=== PATIENT | male | born 1975 | race Hispanic/Latino ===

== ENCOUNTER 2019-12-23 20:16 | Emergency (ER) | payer OTHER ==
[~2019-12-23] VITALS: Ht 180.3 cm; Wt 133.8 kg
[2019-12-23 20:58] LABS: BASOPHILS % 0.4 % (0.0-1.0); EOSINOPHILS # (AUTO) 0.1 (0.0-0.4); EOSINOPHILS % 1.4 % (0.0-6.0); HEMATOCRIT 45.4 % (38.2-49.6); HEMOGLOBIN 15.9 g/dL (14.0-18.0); LYMPHOCYTES # (AUTO) 2.2 (1.0-3.2); LYMPHOCYTES % 23.4 % (18.0-39.1); MEAN CORPUSCULAR VOLUME 82.8 fL (81-99); MONOCYTES # (AUTO) 0.6 (0.2-0.8); MONOCYTES % 6.6 % (4.4-11.3); NEUTROPHILS # (AUTO) 6.4 (2.1-6.9); NEUTROPHILS % 67.8 % (38.7-80.0); PLATELET COUNT 254 x10e3/uL (140-360); RED BLOOD COUNT 5.48 x10e6/uL (4.3-5.7); RED CELL DISTRIBUTION WIDTH 12.8 % (11.7-14.4)
[2019-12-23 21:06] LABS: INR 0.88; PARTIAL THROMBOPLASTIN TIME 30.2 seconds (23.8-35.5); PROTHROMBIN TIME 12.4 seconds (11.9-14.5)
[2019-12-23 21:12] LABS: ALANINE AMINOTRANSFERASE 92 IU/L (0-55); ALBUMIN 3.8 g/dL (3.5-5.0); ALBUMIN/GLOBULIN RATIO 1.1 (0.8-2.0); ALKALINE PHOSPHATASE 110 IU/L (40-150); ANION GAP 10.9 mmol/L (8-16); BLOOD UREA NITROGEN 15 mg/dL (7-26); BUN/CREATININE RATIO 14 (6-25); CALCIUM 9.4 mg/dL (8.4-10.2); CARBON DIOXIDE 25 mmol/L (22-29); CHLORIDE 106 mmol/L (98-107); CREATININE, SERUM 1.11 mg/dL (0.72-1.25); EST GLOMERULAR FILTRATION RATE > 60 ML/MIN (60-); GLUCOSE 106 mg/dL (74-118); POTASSIUM 3.9 mmol/L (3.5-5.1); SODIUM 138 mmol/L (136-145)
[2019-12-28] MEDS ORDERED: LOSARTAN POTAS100 MG PO (15:40)
[2019-12-28] MEDS ORDERED: ISOSORBIDE MONO30 MG PO (15:40)
[2019-12-28] MEDS ORDERED: CARVEDILOL3.125 MG PO (15:40)
[2019-12-28] MEDS ORDERED: METFORMIN HCL500 MG PO (15:41)
[2019-12-28] MEDS ORDERED: SPIRONOLACTONE25 MG PO (15:41)
[2019-12-28] MEDS ORDERED: ASPIR 8181 MG PO (15:41)
[2019-12-28] MEDS ORDERED: LIPITOR10 MG PO (15:41)
[2019-12-28] MEDS ORDERED: VIT B12 PO (15:42)
[2019-12-28] MEDS ORDERED: L-THEANINE25 GM PO (15:42)
[2019-12-28] MEDS ORDERED: VIT D3 PO (15:42)
[2019-12-28] MEDS ORDERED: TOPIRAMATE100 MG PO (15:43)
== END 2019-12-23 21:30 | disposition home or self-care (01) ==
LOC: ER 20:16
DX: K62.5 Hemorrhage of anus and rectum (principal); R42 Dizziness and giddiness; I10 Essential (primary) hypertension; E11.9 Type 2 diabetes mellitus without complications; E78.5 Hyperlipidemia, unspecified; M54.9 Dorsalgia, unspecified; G89.29 Other chronic pain; M06.9 Rheumatoid arthritis, unspecified
CPT/HCPCS: 36415; 80053; 85025; 85610; 85730; 99283

== ENCOUNTER → 2019-12-30 | Outpatient (CLI) | payer OTHER ==
[~2019-12-30] MED LIST: ASPIR 8181 MG PO; CARVEDILOL3.125 MG PO; DIATRIZOATE MEGL/DIATRIZOA SOD 30 ML BTL PO ONE; IOPAMIDOL 370 MG/ML 200 ML INFUS..BTL INJ ONE; ISOSORBIDE MONO30 MG PO; L-THEANINE25 GM PO; LIPITOR10 MG PO; LOSARTAN POTAS100 MG PO; METFORMIN HCL500 MG PO; SODIUM CHLORIDE 0.9% 50ML 50 ML ONE; SPIRONOLACTONE25 MG PO; TOPIRAMATE100 MG PO; VIT B12 PO; VIT D3 PO
[2019-12-30 08:27] LABS: BLOOD UREA NITROGEN 15 mg/dL (7-26); BUN/CREATININE RATIO 16 (6-25); CREATININE, SERUM 0.92 mg/dL (0.72-1.25); EST GLOMERULAR FILTRATION RATE > 60 ML/MIN (60-)
--- NOTE | 2019-12-30 11:41 | Diagnostic Imaging Report ---
CT of the abdomen and pelvis. Comparison: None Clinical History: Abdominal pain, rectal bleeding for 2 days with left lower quadrant pain Technique: Helical CT scan of the abdomen and pelvis was performed. Intravenous contrast administration was utilized. Oral contrast administration was utilized. Coronal and sagittal reconstructions were generated from the raw data. This exam was performed according to our departmental dose-optimization program which includes automated exposure control, adjustment of the mA and/or kV according to patient size Discussion: Inferior chest: Unremarkable. Liver: Unremarkable Spleen: Unremarkable Pancreas: Unremarkable Biliary tree and gallbladder: Unremarkable Adrenal glands: Unremarkable Kidneys and ureters: Unremarkable. A small exophytic cortical cyst in the left kidney too small to characterize. Vasculature: Unremarkable Lymph nodes: Unremarkable Bowel: Unremarkable. Appendix is not clearly visualized. There is no inflammation in the region of the appendix. Pelvis: Urinary bladder is unremarkable. Prostate unremarkable. Seminal vesicles unremarkable. Pelvic wall unremarkable. Peritoneum: No free fluid or air. Perineal compartments: unremarkable. Fluid: As above Bones: Unremarkable Body wall: Unremarkable There is suspected right hydrocele. There is presence of a tiny metallic density anterior to the right common femoral artery. This could be the site of prior arterial access surgery. Impression: No significant abnormality on this CT of the abdomen and pelvis to account for the patient's rectal bleeding. A right hydrocele. The skin with further evaluated on scrotal ultrasound if needed. Signed by: Hilton Reardon MD on 12/30/2019 11:38 AM
== END ==
LOC: CT 07:48
PROVIDERS: ATTEND Internal Medicine Gastroenterology
DX: R10.32 Left lower quadrant pain (principal)
CPT/HCPCS: 36415; 74177; 82565; 84520; Q9967

== ENCOUNTER → 2019-12-31 | Day surgery (SDC) | payer OTHER ==
[2019-12-28 13:50] LABS: BASOPHILS % 0.4 % (0.0-1.0); EOSINOPHILS # (AUTO) 0.1 (0.0-0.4); EOSINOPHILS % 0.7 % (0.0-6.0); HEMATOCRIT 44.1 % (38.2-49.6); HEMOGLOBIN 14.8 g/dL (14.0-18.0); LYMPHOCYTES # (AUTO) 1.9 (1.0-3.2); LYMPHOCYTES % 22.4 % (18.0-39.1); MEAN CORPUSCULAR HEMOGLOBIN 28.2 pg (28-32); MEAN CORPUSCULAR HGB CONC 33.6 g/dL (31-35); MONOCYTES # (AUTO) 0.5 (0.2-0.8); MONOCYTES % 6.2 % (4.4-11.3); NEUTROPHILS % 69.8 % (38.7-80.0); PLATELET COUNT 200 x10e3/uL (140-360); RED BLOOD COUNT 5.25 x10e6/uL (4.3-5.7); RED CELL DISTRIBUTION WIDTH 12.8 % (11.7-14.4)
[~2019-12-31] MED LIST changes: -DIATRIZOATE MEGL/DIATRIZOA SOD 30 ML BTL PO ONE; +FENTANYL CITRATE/PF 100MCG/2 ML INJ ONE; +HYOSCYAMINE 0.125 MG TAB ONE; -IOPAMIDOL 370 MG/ML 200 ML INFUS..BTL INJ ONE; +LIDOCAINE HCL 2% LOCAL INJ 5 ML SDV VIAL INJ ONE; +MIDAZOLAM HCL 5 MG/ML VIAL ONE; +PROPOFOL IV EMULSION 10 MG/ML 20 ML VIAL ONE; -SODIUM CHLORIDE 0.9% 50ML 50 ML ONE
--- OUTSIDE RECORDS SUMMARY | 2019-12-31 05:59 | XMS REPORT ---
Author Author [facility] Organization [facility] Address Unknown Phone Unavailable Care Team Providers Care Animation Director Name Role Phone YVETTE TALAMANTES Unavailable Unavailable Problems This patient has no known problems. Allergies, Adverse Reactions, Alerts This patient has no known allergies or adverse reactions. Medications This patient has no known medications. Results Test Description Test Time Test Comments Text Results Atomic Results Result Comments CT ABDOMEN/PELVIS W 2019-12-30 11:34:00 [place] [address] Patient Name: CARLEY ROUSE MR #: [id number] : 1975 Age/Sex: 44/M Req #: [id number] Adm Physician: Ordered by: YVETTE TALAMANTES MD Report #: [id number] Location: CT Room/Bed: Procedure: [id number] CT/CT ABDOMEN/PELVIS W Exam Date: 12/30/19 Exam Time: 15 REPORT STATUS: Signed CT of the abdomen and pelvis. Comparison: None Clinical History: Abdominal pain, rectal bleeding for 2 days with left lower quadrant pain Technique: Helical CT scan of the abdomen and pelvis was performed. Intravenous contrast administration was utilized. Oral contrast administration was utilized. Coronal and sagittal reconstructions were generated from the raw data. This exam was performed according to our departmental dose-optimization program which includes automated exposure control, adjustment of the mA and/or kV according to patient size Discussion: Inferior chest: Unremarkable. Liver: Unremarkable Spleen: Unremarkable Pancreas: Unremarkable Biliary tree and gallbladder: Unremarkable Adrenal glands: Unremarkable Kidneys and ureters: Unremarkable. A small exophytic cortical cyst in the left kidney too small to characterize. Vasculature: Unremarkable Lymph nodes: Unremarkable Bowel: Unremarkable. Appendix is not clearly visualized. There is no inflammation in the region of the appendix. Pelvis: Urinary bladder is unremarkable. Prostate unremarkable. Seminal vesicles unremarkable. Pelvic wall unremarkable. Peritoneum: No free fluid or air. Perineal compartments: unremarkable. Fluid: As above Bones: Unremarkable Body wall: Unremarkable There is suspected right hydrocele. There is presence of a tiny metallic density anterior to the right common femoral artery. This could be the site of prior arterial access surgery. Impression: No significant abnormality on this CT of the abdomen and pelvis to account for the patient's rectal bleeding. A right hydrocele. The skin with further evaluated on scrotal ultrasound if needed. Signed by: Kemi Stapleton MD on 12/30/2019 11:38 AM Dictated By: KEMI STAPLETON MD [id number] Transcribed By: STEFANIE on 12/30/19 1138 COPY TO: YVETTE TALAMANTES MD
[2019-12-31 09:51] LABS: WBC,FECAL (FECAL LACTOFERRIN) NEGATIVE (NEGATIVE)
[2019-12-31 10:00] VITALS: BP 108/66
--- NOTE | 2019-12-31 12:04 | Operative Report ---
DATE OF PROCEDURE: 12/31/2019 SURGEON: Junior Tarango MD PROCEDURE: Colonoscopy with polypectomy. REFERRING PHYSICIAN: Dr. Yas Robertson. INDICATIONS FOR COLONOSCOPY: Rectal bleeding, diarrhea, father with colon cancer. MEDICATIONS: The patient was done under MAC, please see anesthesiologist's note. PROCEDURE IN DETAIL: With the patient in left lateral decubitus position, a flexible fiberoptic Olympus colonoscope was inserted into the rectum with ease and advanced all the way to the cecum. Prep overall was poor with [id number] amount of retained fecal material scattered in the colon. The cecal valve was intubated and the scope was advanced into the terminal ileum. Biopsies were obtained. The scope was then withdrawn back into the colon. The scope was then withdrawn back into the colon. It was then withdrawn slowly. Whatever was visualized, the mucosa overlying the ascending colon grossly appeared to be within normal limits. Three polyps were hot snared, one polyp was hot biopsied and site was hemoclipped from the transverse colon. Whatever was visualized, the mucosa overlying the descending sigmoid and rectum grossly appeared to be within normal limits. The scope was then retroflexed into the distal rectum and small internal hemorrhoids were noted, none of which was actively bleeding. The scope was then straightened out, it was subsequently withdrawn. The patient tolerated the procedure well. IMPRESSION: 1. Poor prep. 2. Transverse colon polyps x4, 1 hot biopsied, site hemoclipped and 3 hot snared. 3. Internal hemorrhoids, none actively bleeding. PLAN: Follow up histology. Initiate high-fiber, low-fat diet. Initiate high-fiber supplement. Anucort-HC suppositories b.i.d. x10 days and p.r.n. The patient will need a repeat colonoscopy after a better prep. Junior Tarango MD [facility] [place] /[id number] cc: Yas Robertson MD
[2019-12-31 14:59] LABS: C DIFFICILE TOXIN A&B AMP PROB NEGATIVE (NEGATIVE)
== END | disposition home or self-care (01) ==
LOC: OR 05:50
PROVIDERS: ATTEND Internal Medicine Gastroenterology
DX: K92.1 Melena (principal); D12.3 Benign neoplasm of transverse colon; K59.00 Constipation, unspecified; K64.8 Other hemorrhoids; E11.9 Type 2 diabetes mellitus without complications; I11.0 Hypertensive heart disease with heart failure; I50.9 Heart failure, unspecified; G47.33 Obstructive sleep apnea (adult) (pediatric); R07.9 Chest pain, unspecified; E78.5 Hyperlipidemia, unspecified; M06.9 Rheumatoid arthritis, unspecified; G62.9 Polyneuropathy, unspecified; R42 Dizziness and giddiness; Z01.810 Encounter for preprocedural cardiovascular examination; Z01.812 Encounter for preprocedural laboratory examination; Z11.59 Encounter for screening for other viral diseases; Z79.82 Long term (current) use of aspirin; Z79.84 Long term (current) use of oral hypoglycemic drugs; Z68.29 Body mass index [BMI] 29.0-29.9, adult; Z80.0 Family history of malignant neoplasm of digestive organs
CPT/HCPCS: 36415 ×2; 45380; 45384; 45385; 82948; 83630; 83993; 85025; 87045; 87177; 87328; 87493; 87635; 93005; J2001; J2250; J2704; J3010; 45378

== ENCOUNTER → 2020-01-21 | Outpatient (CLI) | payer SELFPAY ==
[~2020-01-21] MED LIST changes: +ASHWAGANDA PO; +CARVEDILOL12.5 MG PO; +ESTER C PO; -FENTANYL CITRATE/PF 100MCG/2 ML INJ ONE; -LIDOCAINE HCL 2% LOCAL INJ 5 ML SDV VIAL INJ ONE; -MIDAZOLAM HCL 5 MG/ML VIAL ONE; -PROPOFOL IV EMULSION 10 MG/ML 20 ML VIAL ONE; +TOPIRAMATE25 MG PO
== END ==
LOC: EDSEX → DX 13:40 → EDSTATUS 01-26 10:00 → MERGE 01-26 10:00
PROVIDERS: ATTEND Internal Medicine Gastroenterology
DX: Z01.818 Encounter for other preprocedural examination (principal); Z11.59 Encounter for screening for other viral diseases
CPT/HCPCS: 87635; 93005

== ENCOUNTER → 2020-01-26 | Day surgery (SDC) | payer OTHER ==
[2020-01-21 14:17] LABS: BASOPHILS % 0.4 % (0.0-1.0); EOSINOPHILS # (AUTO) 0.1 (0.0-0.4); EOSINOPHILS % 1.1 % (0.0-6.0); HEMATOCRIT 42.8 % (38.2-49.6); HEMOGLOBIN 14.4 g/dL (14.0-18.0); LYMPHOCYTES # (AUTO) 1.8 (1.0-3.2); LYMPHOCYTES % 23.2 % (18.0-39.1); MEAN CORPUSCULAR HGB CONC 33.6 g/dL (31-35); MEAN CORPUSCULAR VOLUME 83.1 fL (81-99); MONOCYTES # (AUTO) 0.6 (0.2-0.8); MONOCYTES % 7.2 % (4.4-11.3); NEUTROPHILS # (AUTO) 5.3 (2.1-6.9); NEUTROPHILS % 67.7 % (38.7-80.0); PLATELET COUNT 216 x10e3/uL (140-360); RED BLOOD COUNT 5.15 x10e6/uL (4.3-5.7); RED CELL DISTRIBUTION WIDTH 12.9 % (11.7-14.4)
[~2020-01-26] MED LIST changes: +GLUCAGON FOR INJ 1 MG VIAL ONE; -HYOSCYAMINE 0.125 MG TAB ONE; +LIDOCAINE HCL 2% LOCAL INJ 5 ML SDV VIAL INJ ONE; +PROPOFOL IV EMULSION 10 MG/ML 20 ML VIAL ONE
[2020-01-26 12:05] VITALS: BP 101/51
--- NOTE | 2020-01-26 14:55 | Operative Report ---
DATE OF PROCEDURE: 01/26/2020 SURGEON: Junior Tarango MD PROCEDURE: Colonoscopy with polypectomy note. INDICATIONS FOR COLONOSCOPY: Colorectal cancer screening, father with colon cancer, poor prep on last colonoscopy. MEDICATIONS: The patient was done under MAC, please see anesthesiologist's note. PROCEDURE IN DETAIL: With the patient in left lateral decubitus position, a flexible fiberoptic Olympus colonoscope was inserted into the rectum with ease and advanced all the way to the cecum. Mucosa overlying the cecum appeared to be within normal limits. One minute polyp was removed per cold biopsy forceps from the ascending colon. The transverse colon appeared to be within normal limits. Two polyps were removed per hot snare polypectomy from the descending colon. Sigmoid and rectum appeared to be within normal limits. The scope was then retroflexed into the distal rectum. Small internal hemorrhoids were noted, none of which was actively bleeding. The scope was then straightened out, it was subsequently withdrawn. The patient tolerated the procedure well. IMPRESSION: 1. Ascending colon polyp, minute, removed per cold biopsy forceps. 2. Descending colon polyps x2, hot snared. 3. Internal hemorrhoids, none actively bleeding. PLAN: 1. Follow up histology. 2. Initiate high-fiber, low-fat diet. 3. Initiate high-fiber supplement. 4. The patient might benefit from a followup colonoscopy in 2 to 3 years. Junior Tarango MD [facility] [place] /[id number] cc: DR. DIANE CÁRDENAS
== END | disposition home or self-care (01) ==
LOC: OR 08:22
PROVIDERS: ATTEND Internal Medicine Gastroenterology
DX: Z12.11 Encounter for screening for malignant neoplasm of colon (principal); D12.3 Benign neoplasm of transverse colon; D12.4 Benign neoplasm of descending colon; K64.8 Other hemorrhoids; K21.9 Gastro-esophageal reflux disease without esophagitis; G47.33 Obstructive sleep apnea (adult) (pediatric); E11.9 Type 2 diabetes mellitus without complications; K76.0 Fatty (change of) liver, not elsewhere classified; I11.0 Hypertensive heart disease with heart failure; I50.9 Heart failure, unspecified; E78.5 Hyperlipidemia, unspecified; R07.9 Chest pain, unspecified; M54.2 Cervicalgia; M54.9 Dorsalgia, unspecified; Z88.6 Allergy status to analgesic agent; Z79.82 Long term (current) use of aspirin; Z79.84 Long term (current) use of oral hypoglycemic drugs; Z68.41 Body mass index [BMI] 40.0-44.9, adult; Z85.038 Personal history of other malignant neoplasm of large intestine; Z80.0 Family history of malignant neoplasm of digestive organs
CPT/HCPCS: 36415 ×2; 45380; 45385; 82948; 85025; J1610; J2001; J2704

== ENCOUNTER → 2022-03-25 | Outpatient (CLI) | payer BC ==
[~2022-03-25] MED LIST changes: +ACETAMINOPHEN-1 EAC3; +CRESTOR10 MG PO; +CYCLOBENZAPRINE10 MG PO; -GLUCAGON FOR INJ 1 MG VIAL ONE; +HYDROCODON-ACE1 EA12 PO; +HYZAAR 100-12.1 EACH; -LIDOCAINE HCL 2% LOCAL INJ 5 ML SDV VIAL INJ ONE; +MAGNESIUM; +NEURONTIN400 MG PO; -PROPOFOL IV EMULSION 10 MG/ML 20 ML VIAL ONE
== END ==
LOC: RAD 09:44
PROVIDERS: ATTEND Neurological Surgery
DX: M50.20 Other cervical disc displacement, unspecified cervical region (principal); M43.22 Fusion of spine, cervical region
CPT/HCPCS: 72050

== ENCOUNTER 2022-05-28 13:55 | Emergency (ER) | payer BC ==
[~2022-05-28] VITALS: Ht 180.3 cm; Wt 137.4 kg
[2022-05-28] MEDS ORDERED: KETOROLAC TROMETHAMINE 30 MG/ML VIAL IV STA (14:31)
[2022-05-28 14:45] LABS: BASOPHILS % 0.3 % (0.0-1.0); EOSINOPHILS # (AUTO) 0.1 (0.0-0.4); EOSINOPHILS % 1.3 % (0.0-6.0); HEMATOCRIT 44.9 % (38.2-49.6); HEMOGLOBIN 15.4 g/dL (14.0-18.0); LYMPHOCYTES # (AUTO) 1.5 (1.0-3.2); LYMPHOCYTES % 23.5 % (18.0-39.1); MEAN CORPUSCULAR HEMOGLOBIN 28.7 pg (28-32); MEAN CORPUSCULAR HGB CONC 34.3 g/dL (31-35); MEAN CORPUSCULAR VOLUME 83.6 fL (81-99); MONOCYTES # (AUTO) 0.4 (0.2-0.8); NEUTROPHILS # (AUTO) 4.3 (2.1-6.9); NEUTROPHILS % 67.6 % (38.7-80.0); PLATELET COUNT 170 x10e3/uL (140-360); RED BLOOD COUNT 5.37 x10e6/uL (4.3-5.7); RED CELL DISTRIBUTION WIDTH 12.2 % (11.7-14.4)
[2022-05-28] MEDS ORDERED: ONDANSETRON HCL INJ 2MG/ML 2ML 2 MG/ML VIAL IV PRN (14:45)
[2022-05-28] MEDS ORDERED: SODIUM CHLORIDE 0.9% 1000ML 1,000 ML IV ONE (14:45)
[2022-05-28 15:01] LABS: ALBUMIN 3.7 g/dL (3.5-5.0); ALBUMIN/GLOBULIN RATIO 1.2 (0.8-2.0); ANION GAP 13.3 mmol/L (8-16); CALCIUM 8.7 mg/dL (8.4-10.2); CREATININE, SERUM 1.04 mg/dL (0.72-1.25); POTASSIUM 3.3 mmol/L (3.5-5.1)
[2022-05-28] MEDS ORDERED: IOPAMIDOL 370 MG/ML 100 ML INFUS..BTL INJ ONE (16:38)
[2022-05-28 17:05] LABS: CLARITY,URINE CLEAR (CLEAR); COLOR,URINE YELLOW (YELLOW); LEUKOCYTE ESTERASE ,URINE TRACE (NEGATIVE); NITRITE,URINE NEGATIVE (NEGATIVE); PROTEIN,URINE DIPSTICK NEGATIVE (NEGATIVE)
[2022-05-28 17:06] LABS: KETONES,URINE NEGATIVE (NEGATIVE); URINE UROBILINOGEN 0.2 mg/dL (0.2 - 1)
[2022-05-28 17:15] LABS: AMORPHOUS SEDIMENT,URINE FEW (FEW)
[2022-05-28] MEDS ORDERED: ONDANSETRON ODT4 MG PO (17:23)
[2022-05-28] MEDS ORDERED: DICYCLOMINE HCL20 MG PO (17:23)
[2022-05-28] MEDS ORDERED: METHOCARBAMOL750 MG PO (17:24)
[2022-05-28 17:36] VITALS: BP 139/78
== END 2022-05-28 17:34 | disposition home or self-care (01) ==
LOC: ER 14:20
DX: R10.84 Generalized abdominal pain (principal); T50.995A Adverse effect of other drugs, medicaments and biological substances, initial encounter; R11.0 Nausea; E11.65 Type 2 diabetes mellitus with hyperglycemia; M54.50 Low back pain, unspecified; I10 Essential (primary) hypertension; E78.5 Hyperlipidemia, unspecified; K76.0 Fatty (change of) liver, not elsewhere classified; R94.31 Abnormal electrocardiogram [ECG] [EKG]
CPT/HCPCS: 36415; 74177; 80053; 81001; 83690; 84484; 85025; 93005; 99284; J1885; J2405; J7030; Q9967